=== PATIENT | female | born 1995 | race Caucasian/White ===

== ENCOUNTER 2025-02-01 18:07 | Emergency (ER) | payer OTHER ==
[~2025-02-01] VITALS: Ht 162.6 cm; Wt 63.0 kg
[2025-02-01 18:12] VITALS: O2SAT 98
[2025-02-01] MEDS ORDERED: ACET-2708 MT (20:51)
[2025-02-01] MEDS ORDERED: NEOM1PAC6 TP (20:51)
[2025-02-01] MEDS: BACITRACIN ZINC OINT UDPKT TOP ONE (20:52)
[2025-02-01 21:13] VITALS: BP 101/72; PULSE 72; RESP 16; TEMP 36.9; O2SAT 98
== END 2025-02-01 21:15 | disposition home or self-care (01) ==
LOC: ER 18:07
DX: S90.511A Abrasion, right ankle, initial encounter (principal); S09.90XA Unspecified injury of head, initial encounter; Z79.899 Other long term (current) drug therapy; V87.8XXA Person injured in other specified noncollision transport accidents involving motor vehicle (traffic), initial encounter; Y93.89 Activity, other specified; Y92.89 Other specified places as the place of occurrence of the external cause; Y99.8 Other external cause status
CPT/HCPCS: 73610; 99284